=== PATIENT | female | born 1990 | race Caucasian/White ===

== ENCOUNTER 2023-11-20 10:00 | Emergency (ER) | payer MEDICAID ==
[~2023-11-20] VITALS: Ht 167.6 cm; Wt 49.9 kg
[2023-11-20 10:01] VITALS: BP_SYST 99; PULSE 76; RESP 18; TEMP 97.7; O2SAT 94
[2023-11-20 10:27] VITALS: BP_SYST 99; PULSE 76; RESP 18; TEMP 97.7; O2SAT 94
== END 2023-11-20 10:27 | disposition home or self-care (01) ==
LOC: SED 10:00
DX: Z02.89 Encounter for other administrative examinations (principal)
CPT/HCPCS: 99283